=== PATIENT | female | born 1955 | race Caucasian/White ===

== ENCOUNTER → 2018-03-08 | Outpatient (CLI) | payer MEDICARE, OTHER ==
[~2018-03-08] MED LIST: ALBU90OI6 NEB; ALEN70 PO; Atrovent Inha12.9 GM INH; BISA5EC PO; BUDE6HFA INH; BUME2 PO; Biscolax10 MG PO; CALMAGZIN PO; CARV6.25 PO; CETI5 PO; CLON.5 PO; CLON1 PO; Cleocin HCl300 MG PO; DIPH50 PO; DOCU100 PO; ERGO400 PO; FURO80 PO; Fosamax70 MG PO; HYDACE10B PO; HYDMOR2 PO; HYDR-86 PO; IRON PO; LEVOXYL PO; LEVSOD100 PO; LEVSOD75 PO; LEVSOD88 PO; LIDO5TP TOP; Loperamide2 MG PO; Norco 10-325 T1 EACH PO; OXYC1TAB11 PO; OXYC5 PO; POTCHL10ER PO; POTCHL20ER PO; Percocet 10-321 EACH PO; Prilosec Otc20 MG PO; Prinivil10 MG PO; Roxicodone5 MG PO; SPIR50 PO; SYMBICORT INH; TORSE20 PO; TRAM50 PO; Ventolin Soln3 ML INH
== END ==
LOC: LAB SHORT 16:34 → LAB 16:34
DX: L02.424 Furuncle of left upper limb (principal); L02.423 Furuncle of right upper limb; L02.02 Furuncle of face; L02.828 Furuncle of other sites; L20.89 Other atopic dermatitis
CPT/HCPCS: 87070; 87077; 87147; 87186; 87205

== ENCOUNTER → 2018-03-13 | Outpatient (CLI) | payer MEDICARE, OTHER ==
[2018-03-13 16:45] LABS: Albumin, Blood 2.7 g/dL (3.4-5.0); Albumin/Globulin Ratio 0.8 (0.8-1.8); Bilirubin, Total 2.9 mg/dL (0.1-1.0); Bun/Creatinine Ratio 21.1 (12.0-20.0); Calcium, Blood 7.8 mg/dL (8.5-10.1); Creatinine, Blood 2.85 mg/dL (0.40-1.00); Globulin, Blood 3.4 g/dL (2.2-4.0); Potassium, Blood 5.6 mmol/L (3.5-5.5); Total Protein, Blood 6.1 g/dL (6.4-8.2)
== END ==
LOC: LAB SHORT 16:30 → LAB EV 16:30
PROVIDERS: Physician Assistant Medical
DX: Z53.9 Procedure and treatment not carried out, unspecified reason (principal)
CPT/HCPCS: 80053

== ENCOUNTER 2018-03-14 08:48 | Inpatient (IN) | payer MEDICARE, OTHER ==
[~2018-03-14] VITALS: Ht 149.9 cm; Wt 55.8 kg
[~2018-03-14 08:48] MED LIST changes: -CARV6.25 PO; -CLON.5 PO; -LEVSOD88 PO; -POTCHL10ER PO; -Prinivil10 MG PO
[2018-03-14 10:05] LABS: Hematocrit 29.1 % (33.0-51.0); Hemoglobin 9.5 g/dL (11.5-16.0); Mean Corpuscular HGB 25.7 pg (26.0-34.0); Mean Corpuscular HGB Conc 32.6 g/dL (31.5-36.5); Mean Corpuscular Volume 79 fL (80-100); Mean Platelet Volume 10.3 fL (9.1-12.4); Platelet Count 181 K/mm3 (150-400); RDW Coefficient Variation 15.2 % (11.7-14.2); RDW Standard Deviation 43.8 fL (35.1-46.3); Red Blood Cell Count 3.69 M/mm3 (3.80-5.20); White Blood Cell Count 32.74 K/mm3 (4.00-11.30)
[2018-03-14 10:22] LABS: BAND PERCENT MAN 14 % (0-8); BASOPHILS PERCENT MAN 0 % (0-2); EOSINOPHILS ABSOLUTE MAN 0.32 K/mm3 (0.00-0.68); EOSINOPHILS PERCENT MAN 1 % (0-6); MONOCYTES ABSOLUTE MAN 0.98 K/mm3 (0.16-1.47); MONOCYTES PERCENT MAN 3 % (4-13); NEUTROPHILS ABSOLUTE MAN 31.43 K/mm3 (1.96-9.15); SEG NEUTROPHILS PERCENT MAN 82 % (41-73); TOTAL CELLS COUNTED 100
[2018-03-14 11:02] LABS: Albumin, Blood 2.3 g/dL (3.4-5.0); Albumin/Globulin Ratio 0.5 (0.8-1.8); Bilirubin, Total 2.3 mg/dL (0.1-1.0); Calcium, Blood 8.1 mg/dL (8.5-10.1); Creatinine, Blood 2.32 mg/dL (0.40-1.00); Globulin, Blood 4.2 g/dL (2.2-4.0); Potassium, Blood 5.5 mmol/L (3.5-5.5); Total Protein, Blood 6.5 g/dL (6.4-8.2)
[2018-03-14 13:51] LABS: International Normalized Ratio 1.21; Prothrombin Time Results 12.7 Sec (9.7-11.5)
[2018-03-14] MEDS ORDERED: LEVSOD88 PO (14:53)
[2018-03-14] MEDS ORDERED: POTCHL10ER PO (14:55)
[2018-03-14] MEDS ORDERED: Prinivil10 MG PO (14:56)
[2018-03-14] MEDS ORDERED: CARV6.25 PO (14:56)
[2018-03-14] MEDS ORDERED: CLON.5 PO (14:57)
[2018-03-14 18:18] LABS: Magnesium, Blood 1.6 mg/dL (1.6-2.4); Uric Acid, Blood 9.2 mg/dL (2.6-6.0)
[2018-03-14 18:21] LABS: Albumin, Blood 2.2 g/dL (3.4-5.0); Anion Gap 14 mmol/L (6-16); Blood Urea Nitrogen 65 mg/dL (8-24); Bun/Creatinine Ratio 28.6 (12.0-20.0); CO2, Blood 17 mmol/L (21-32); Calcium, Blood 7.9 mg/dL (8.5-10.1); Chloride, Blood 87 mmol/L (98-108); Creatinine, Blood 2.27 mg/dL (0.40-1.00); Glomerular Filtration Rate 23 (60-); Glucose, Blood 76 mg/dL (70-99); Phosphorus, Blood 4.6 mg/dL (2.5-4.9); Potassium, Blood 5.8 mmol/L (3.5-5.5); Sodium, Blood 118 mmol/L (136-145)
[2018-03-14 18:25] LABS: Source, Urine Catheter
[2018-03-14 18:31] LABS: Bilirubin, Urine Neg (Neg); Blood, Urine 1+ (Neg); Glucose Qualitative, Urine Neg (Neg); Ketones, Urine Neg (Neg); Leukocyte Esterase, Urine 1+ (Neg); Nitrite, Urine Neg (Neg); Protein, Urine 1+ (Neg); Urobilinogen, Urine 1+ (Normal)
[2018-03-14 18:35] LABS: Sodium, Urine, Random 11 mmol/L (20-110)
[2018-03-14 18:40] LABS: Appearance, Urine Clear (Clear); Color, Urine Yellow (P-Yellow)
[2018-03-14 18:41] LABS: Squamous Epithelial Cells Mod /hpf (Few)
[2018-03-14 18:42] LABS: Bacteria Few /hpf
[2018-03-14 18:42] LABS: PO2 Arterial 65.3 mmHg (80-100); pH Blood Arterial 7.32 (7.35-7.45)
[2018-03-14 19:00] LABS: Osmolality, Urine 272 mos/kg (15-1400)
[2018-03-14 19:02] LABS: Percent Saturation 23.3 % (15.0-50.0)
[2018-03-14 20:10] LABS: Calcium, Blood 7.7 mg/dL (8.5-10.1); Creatinine, Blood 2.17 mg/dL (0.40-1.00); Potassium, Blood 5.9 mmol/L (3.5-5.5)
[2018-03-14 20:23] LABS: Thyroid Stimulating Hormone 0.757 uIU/mL (0.360-4.800)
[2018-03-14 20:42] LABS: Bun/Creatinine Ratio 28.1 (12.0-20.0); Calcium, Blood 7.9 mg/dL (8.5-10.1); Creatinine, Blood 2.28 mg/dL (0.40-1.00); Potassium, Blood 5.7 mmol/L (3.5-5.5)
[2018-03-14 22:41] LABS: Bun/Creatinine Ratio 30.7 (12.0-20.0); Calcium, Blood 7.5 mg/dL (8.5-10.1); Creatinine, Blood 2.12 mg/dL (0.40-1.00); Potassium, Blood 5.6 mmol/L (3.5-5.5)
[2018-03-15 02:27] LABS: Mean Corpuscular HGB 25.6 pg (26.0-34.0); Mean Corpuscular HGB Conc 33.3 g/dL (31.5-36.5); Mean Corpuscular Volume 77 fL (80-100); Mean Platelet Volume 11.3 fL (9.1-12.4); Platelet Count 173 K/mm3 (150-400); RDW Coefficient Variation 15.7 % (11.7-14.2); RDW Standard Deviation 43.2 fL (35.1-46.3); RETICULOCYTE ABSOLUTE 0.0444 M/mm3 (0.0200-0.1100); RETICULOCYTE COUNT PERCENT 1.26 % (0.50-2.50); Red Blood Cell Count 3.52 M/mm3 (3.80-5.20); White Blood Cell Count 19.99 K/mm3 (4.00-11.30)
[2018-03-15 02:44] LABS: BAND PERCENT MAN 21 % (0-8); BASOPHILS PERCENT MAN 0 % (0-2); EOSINOPHILS PERCENT MAN 0 % (0-6); LYMPHOCYTES ABSOLUTE MAN 0.19 K/mm3 (0.84-5.20); LYMPHOCYTES PERCENT MAN 1 % (21-46); MONOCYTES ABSOLUTE MAN 0.19 K/mm3 (0.16-1.47); MONOCYTES PERCENT MAN 1 % (4-13); MYELOCYTE ABSOLUTE MAN 0.19 K/mm3 (0.00-0.00); MYELOCYTE PERCENT MAN 1 % (0-0); NEUTROPHILS ABSOLUTE MAN 19.39 K/mm3 (1.96-9.15); SEG NEUTROPHILS PERCENT MAN 76 % (41-73); TOTAL CELLS COUNTED 100
[2018-03-15 03:12] LABS: Alanine Aminotransfer (ALT/SGP 12 U/L (12-78); Albumin, Blood 1.9 g/dL (3.4-5.0); Albumin/Globulin Ratio 0.5 (0.8-1.8); Alk Phos 112 U/L (50-136); Anion Gap 11 mmol/L (6-16); Aspartate Aminotrans (AST/SGOT 22 U/L (12-37); Bilirubin, Total 1.4 mg/dL (0.1-1.0); Blood Urea Nitrogen 65 mg/dL (8-24); Bun/Creatinine Ratio 32.2 (12.0-20.0); CO2, Blood 19 mmol/L (21-32); Calcium, Blood 7.3 mg/dL (8.5-10.1); Chloride, Blood 90 mmol/L (98-108); Creatinine, Blood 2.02 mg/dL (0.40-1.00); Globulin, Blood 3.8 g/dL (2.2-4.0); Glomerular Filtration Rate 26 (60-); Glucose, Blood 113 mg/dL (70-99); Magnesium, Blood 1.6 mg/dL (1.6-2.4); Phosphorus, Blood 4.7 mg/dL (2.5-4.9); Potassium, Blood 5.4 mmol/L (3.5-5.5); Sodium, Blood 120 mmol/L (136-145); Total Protein, Blood 5.7 g/dL (6.4-8.2); Vancomycin, Random 13.1 ug/mL
[2018-03-15 22:31] LABS: Potassium, Blood 4.7 mmol/L (3.5-5.5)
[2018-03-16 05:26] LABS: Hemoglobin 8.6 g/dL (11.5-16.0); Mean Corpuscular HGB 25.9 pg (26.0-34.0); Mean Corpuscular HGB Conc 33.1 g/dL (31.5-36.5); Mean Corpuscular Volume 78 fL (80-100); Mean Platelet Volume 9.3 fL (9.1-12.4); NRBC ABSOLUTE 0.02 K/mm3 (0.00-0.02); NRBC Auto 0.1 /100 WBC (0.0-0.2); Platelet Count 203 K/mm3 (150-400); RDW Coefficient Variation 15.8 % (11.7-14.2); RDW Standard Deviation 45.1 fL (35.1-46.3); Red Blood Cell Count 3.32 M/mm3 (3.80-5.20); White Blood Cell Count 18.07 K/mm3 (4.00-11.30)
[2018-03-16 05:57] LABS: BAND PERCENT MAN 13 % (0-8); BASOPHILS PERCENT MAN 0 % (0-2); EOSINOPHILS PERCENT MAN 0 % (0-6); LYMPHOCYTES PERCENT MAN 5 % (21-46); MONOCYTES PERCENT MAN 5 % (4-13); MYELOCYTE ABSOLUTE MAN 0.18 K/mm3 (0.00-0.00); MYELOCYTE PERCENT MAN 1 % (0-0); NEUTROPHILS ABSOLUTE MAN 16.08 K/mm3 (1.96-9.15); SEG NEUTROPHILS PERCENT MAN 76 % (41-73); TOTAL CELLS COUNTED 100
[2018-03-16 06:05] LABS: Magnesium, Blood 1.8 mg/dL (1.6-2.4)
[2018-03-16 06:08] LABS: Alanine Aminotransfer (ALT/SGP 9 U/L (12-78); Albumin, Blood 2.1 g/dL (3.4-5.0); Albumin/Globulin Ratio 0.5 (0.8-1.8); Alk Phos 110 U/L (50-136); Anion Gap 9 mmol/L (6-16); Aspartate Aminotrans (AST/SGOT 24 U/L (12-37); Blood Urea Nitrogen 58 mg/dL (8-24); Bun/Creatinine Ratio 38.9 (12.0-20.0); CO2, Blood 23 mmol/L (21-32); Calcium, Blood 7.8 mg/dL (8.5-10.1); Chloride, Blood 98 mmol/L (98-108); Creatinine, Blood 1.49 mg/dL (0.40-1.00); Globulin, Blood 3.9 g/dL (2.2-4.0); Glomerular Filtration Rate 37 (60-); Glucose, Blood 90 mg/dL (70-99); Phosphorus, Blood 3.8 mg/dL (2.5-4.9); Potassium, Blood 4.6 mmol/L (3.5-5.5); Sodium, Blood 130 mmol/L (136-145); Vancomycin, Random 6.9 ug/mL
[2018-03-17 05:46] LABS: BASOPHILS ABSOLUTE AUTO 0.17 K/mm3 (0.00-0.23); BASOPHILS PERCENT AUTO 1 % (0-2); Hematocrit 32.1 % (33.0-51.0); Hemoglobin 10.2 g/dL (11.5-16.0); LYMPHOCYTES ABSOLUTE AUTO 0.78 K/mm3 (0.84-5.20); LYMPHOCYTES PERCENT AUTO 3 % (21-46); MONOCYTES ABSOLUTE AUTO 2.01 K/mm3 (0.16-1.47); MONOCYTES PERCENT AUTO 7 % (4-13); Mean Corpuscular HGB Conc 31.8 g/dL (31.5-36.5); Mean Platelet Volume 9.4 fL (9.1-12.4); NRBC ABSOLUTE 0.05 K/mm3 (0.00-0.02); NRBC Auto 0.2 /100 WBC (0.0-0.2); Platelet Count 237 K/mm3 (150-400); RDW Coefficient Variation 16.3 % (11.7-14.2); RDW Standard Deviation 48.3 fL (35.1-46.3); Red Blood Cell Count 3.92 M/mm3 (3.80-5.20); White Blood Cell Count 31.08 K/mm3 (4.00-11.30)
[2018-03-17 05:58] LABS: EOSINOPHILS ABSOLUTE AUTO 0.45 K/mm3 (0.00-0.68); EOSINOPHILS PERCENT AUTO 1 % (0-6); IMMATURE GRAN ABSOLUTE AUTO 2.35 K/mm3 (0.00-0.10); IMMATURE GRAN PERCENT AUTO 8 % (0-1); Mean Corpuscular Volume 82 fL (80-100); NEUTROPHILS ABSOLUTE AUTO 25.32 K/mm3 (1.96-9.15); NEUTROPHILS PERCENT AUTO 82 % (41-73)
[2018-03-17 06:13] LABS: Albumin, Blood 2.2 g/dL (3.4-5.0); Albumin/Globulin Ratio 0.6 (0.8-1.8); Bilirubin, Total 0.9 mg/dL (0.1-1.0); Bun/Creatinine Ratio 29.5 (12.0-20.0); Calcium, Blood 8.5 mg/dL (8.5-10.1); Creatinine, Blood 1.73 mg/dL (0.40-1.00); Potassium, Blood 4.8 mmol/L (3.5-5.5); Total Protein, Blood 6.2 g/dL (6.4-8.2)
[2018-03-17 06:19] LABS: BAND PERCENT MAN 13 % (0-8); BASOPHILS PERCENT MAN 0 % (0-2); BLASTS PERCENT MAN 1 % (0-0); EOSINOPHILS PERCENT MAN 0 % (0-6); LYMPHOCYTES ABSOLUTE MAN 0.31 K/mm3 (0.84-5.20); LYMPHOCYTES PERCENT MAN 1 % (21-46); MONOCYTES ABSOLUTE MAN 0.31 K/mm3 (0.16-1.47); MONOCYTES PERCENT MAN 1 % (4-13); NEUTROPHILS ABSOLUTE MAN 29.52 K/mm3 (1.96-9.15); PROMYELOCYTE ABSOLUTE MAN 0.62 K/mm3 (0.00-0.00); PROMYELOCYTE PERCENT MAN 2 % (0-0); SEG NEUTROPHILS PERCENT MAN 82 % (41-73); TOTAL CELLS COUNTED 100
[2018-03-17 13:10] LABS: A/G RATIO 0.7 (0.7-1.7); ALBUMIN 2.3 g/dL (2.9-4.4); ALPHA-1-GLOBULIN 0.5 g/dL (0.0-0.4); ALPHA-2-GLOBULIN 0.8 g/dL (0.4-1.0); BETA GLOBULIN 0.7 g/dL (0.7-1.3); GAMMA GLOBULIN 1.1 g/dL (0.4-1.8); GLOBULIN, TOTAL 3.1 g/dL (2.2-3.9); M-SPIKE Not Observed g/dL (Not Observed); PROTEIN, TOTAL, SERUM 5.4 g/dL (6.0-8.5)
[2018-03-18 05:11] LABS: Hematocrit 27.9 % (33.0-51.0); Hemoglobin 8.6 g/dL (11.5-16.0)
[2018-03-18 05:35] LABS: Anion Gap 8 mmol/L (6-16); Blood Urea Nitrogen 62 mg/dL (8-24); Bun/Creatinine Ratio 26.4 (12.0-20.0); CO2, Blood 23 mmol/L (21-32); Calcium, Blood 8.2 mg/dL (8.5-10.1); Chloride, Blood 97 mmol/L (98-108); Creatinine, Blood 2.35 mg/dL (0.40-1.00); Glomerular Filtration Rate 22 (60-); Glucose, Blood 87 mg/dL (70-99); Phosphorus, Blood 4.9 mg/dL (2.5-4.9); Potassium, Blood 5.4 mmol/L (3.5-5.5); Sodium, Blood 128 mmol/L (136-145)
== END 2018-03-21 09:35 | DRG 871 ==
LOC: ER 08:48 → MEDS 08:49 → ICUE 17:16 → MEDS 17:17 → ICUE 20:53 → MEDS 03-15 23:29
PROVIDERS: Emergency Medicine; Hospitalist; Internal Medicine Nephrology
DX: A41.02 Sepsis due to Methicillin resistant Staphylococcus aureus (principal); J15.212 Pneumonia due to Methicillin resistant Staphylococcus aureus; I33.0 Acute and subacute infective endocarditis; J96.01 Acute respiratory failure with hypoxia; N17.0 Acute kidney failure with tubular necrosis; J85.0 Gangrene and necrosis of lung; J44.0 Chronic obstructive pulmonary disease with (acute) lower respiratory infection; J44.1 Chronic obstructive pulmonary disease with (acute) exacerbation; L03.115 Cellulitis of right lower limb; E87.1 Hypo-osmolality and hyponatremia; F13.20 Sedative, hypnotic or anxiolytic dependence, uncomplicated; E87.2 Acidosis; Z51.5 Encounter for palliative care; B95.62 Methicillin resistant Staphylococcus aureus infection as the cause of diseases classified elsewhere; B18.2 Chronic viral hepatitis C; E03.9 Hypothyroidism, unspecified; D64.9 Anemia, unspecified; G89.4 Chronic pain syndrome; M81.0 Age-related osteoporosis without current pathological fracture; M25.552 Pain in left hip; T50.2X5A Adverse effect of carbonic-anhydrase inhibitors, benzothiadiazides and other diuretics, initial encounter; Z66 Do not resuscitate; L89.151 Pressure ulcer of sacral region, stage 1; I12.9 Hypertensive chronic kidney disease with stage 1 through stage 4 chronic kidney disease, or unspecified chronic kidney disease; N18.3 Chronic kidney disease, stage 3 (moderate)
CPT/HCPCS: 36415; 36600; 51702; 71045; 71250; 76604; 76700; 76857; 80048; 80053; 80069; 80202; 81001; 82374; 82533; 82607; 82728; 82746; 82803; 83540; 83550; 83735; 83930; 83935; 84100; 84132; 84165; 84295; 84300; 84443; 84550; 85014; 85018; 85025; 85045; 85610; 85651; 85730; 86140; 87040; 87070; 87077; 87147; 87186; 87205; 93005; 93010; 93306; 94640; 94760; 96374; 97110; 97162; 97530; 99285; C1751; G8978; G8979; J0881; J1956; J2930; J3370; J7030; J7070